=== PATIENT | male | born 1945 | race Caucasian/White ===

== ENCOUNTER 2016-06-21 15:45 | Emergency (ER) | payer MEDICARE ==
[2016-06-21] MEDS ORDERED: SODIUM CHLORIDE 0.9% 1,000 ML IV ONE (16:35)
[2016-06-21] MEDS ORDERED: POTASSIUM BICARB 25 MEQ TABLET PO STA (17:26)
[2016-06-21] MEDS ORDERED: POTASSIUM BICARB 25 MEQ TABLET PO ONE (17:30)
== END 2016-06-21 19:15 | disposition home or self-care (01) ==
DX: E86.0 Dehydration (principal); Z86.73 Personal history of transient ischemic attack (TIA), and cerebral infarction without residual deficits
CPT/HCPCS: 36415; 71020; 80053; 81003; 83690; 84484; 85025; 93005; 93010; 96360; 96361; 99284; A9270

== ENCOUNTER 2017-11-27 13:21 | Outpatient (CLI) | payer MEDICARE | END 2017-11-27 13:22 | disposition short-term general hospital (02) | LOC: EMS 13:21 | PROVIDERS: ATTEND Surgery | DX: R53.1 Weakness (principal); R29.810 Facial weakness | CPT/HCPCS: A0170; A0425; A0427 ==

== ENCOUNTER 2019-02-13 15:47 | Emergency (ER) | payer MEDICARE ==
--- NOTE | 2019-02-13 16:41 | ED Physician Documentation ---
History of Present Illness - Stated complaint Stated Complaint: TROUBLE WALKING - Chief complaint Chief Complaint: Neuro - History obtained from History obtained from: Patient, Family - Additonal information Additional information: Is a 73-year-old man who presents with his complains that he went for a walk today that was several miles long and when he came back into the house he was "wonky". He was kind of wobbly he sat down in the chair his tested his arms and his left arm seemed weaker than the right because it would not lift up as high. She then gave him some food to eat and he drifted in and out in his chair for approximately 3 hours just dozing. When he went to get out of the chair he had difficulty getting up and that is when they decided that he should come in and be seen. The only symptom that he noted was that he was a little unsteady when he was done with his walk. Of note the pacer patient just had a pacemaker placed in the left subclavian area 5 days ago. This was an outpatient procedure. He is been active since that time walking on a treadmill at the gym. He denies any headache or dizziness. He did not have chest pain or shortness of breath. He did not break out in a sweat or feel nauseous. He has a history of mini strokes and is on Plavix but but denies heart history. They put the pacemaker in because he was having "fainting spells" due to his low heart rate. Have an appointment with the business quality assurance analyst at [facility] in 3 days. Review of Systems Constitutional: denies: Fever Ears: denies: Ear pain Nose: denies: Congestion Throat: denies: Sore throat Cardiac: reports: Pedal edema (Chronic and not worse than normal). denies: Chest pain / pressure, Palpitations Respiratory: denies: Dyspnea, Cough GI: denies: Nausea, Vomiting : denies: Dysuria Skin: denies: Rash Neurologic: reports: Generalized weakness. denies: Focal weakness, Numbness, Difficulty speaking, Near syncope, Syncope, Confused, Altered mental status, Headache, LOC PD PAST MEDICAL HISTORY - Past Medical History Cardiovascular: None Respiratory: None Endocrine/Autoimmune: None GI: None : Benign prostate hypertrophy Psych: None Musculoskeletal: None Derm: None - Present Medications Home Medications: Ambulatory Orders Medication Instructions Recorded Confirmed Enalapril Maleate [Vasotec] 20 mg PO BID 10/19/15 06/21/16 Finasteride 5 mg PO DAILY 10/19/15 06/21/16 Terazosin [Hytrin] 10 mg PO DAILY 10/19/15 06/21/16 amLODIPine [Norvasc] 2.5 mg PO DAILY 10/19/15 06/21/16 Potassium Chloride [Micro-K] 20 meq PO BIDWM 06/21/16 06/21/16 Atorvastatin [Lipitor] 02/13/19 Carbidopa/Levodopa [Carbidopa-Levo 02/13/19 ER 25-100 Tab] Clopidogrel [Plavix] 75 mg PO ONCE 02/13/19 02/13/19 Furosemide 40 mg PO 02/13/19 - Allergies Allergies/Adverse Reactions: Allergies Allergy/AdvReac Type Severity Reaction Status Date / Time No Known Drug Allergies Allergy Verified 10/19/15 17:10 - Social History Does the pt smoke?: No Smoking Status: Never smoker Does the pt drink ETOH?: No Does the pt have substance abuse?: No PD ED PE NORMAL - Vitals Vital signs reviewed: Yes - General General: Alert and oriented X 3, No acute distress, Well developed/nourished, Other (Patient was reading a book.) - HEENT HEENT: Atraumatic, PERRL, EOMI, Moist mucous membranes, Pharynx benign - Neck Neck: No adenopathy, Thyroid normal - Cardiac Cardiac: RRR, No murmur, Strong equal pulses - Respiratory Respiratory: No respiratory distress, Clear bilaterally - Abdomen Abdomen: Soft, Non tender, Non distended - Derm Derm: Other (There is a papular rash on the left upper chest wall due to the prep for the pacemaker. The incision looks like it is healing well.) - Extremities Extremities: No: No deformity - Neuro Neuro: Alert and oriented X 3, pen tester 2-12 intact, No motor deficit, No sensory deficit, Normal speech, Other (There is no pronator drift. The patient's left arm he holds slightly lower than the right however he did just have a subclavian pacemaker placed.) - Psych Psych: Normal mood, Normal affect Results - Vitals Vitals: Oxygen O2 Source Room air - EKG (time done) 1654 Rate: Rate (enter#) (50) Rhythm: Sinus bradycardia, Other (Paced rhythm) Ischemia: Normal ST segments Compare to prior EKG: Old EKG unavailable - Labs Labs: Laboratory Tests 02/13/19 02/13/19 02/13/19 14:55 14:55 14:55 WBC 6.8 RBC 3.87 L Hgb 12.1 L Hct 36.8 L MCV 95.1 H MCH 31.3 H MCHC 32.9 RDW 13.2 Plt Count 132 MPV 10.4 Neut # (Auto) 4.1 Lymph # (Auto) 1.7 [place] # (Auto) 0.5 Eos # (Auto) 0.4 Baso # (Auto) 0.1 Absolute Nucleated RBC 0.00 Nucleated RBC % 0.0 PT 13.0 H INR 1.2 Sodium 141 Potassium 3.8 Chloride 101 Carbon Dioxide 31 Anion Gap 9.0 BUN 23 H Creatinine 1.0 Estimated GFR (MDRD) 73 L Glucose 103 H POC Whole Bld Glucose Calcium 9.3 Phosphorus 4.2 Magnesium 2.1 Troponin I High Sens Urine Color Urine Clarity Urine pH Ur Specific [place] Urine Protein Urine Glucose (UA) Urine Ketones Urine Occult Blood Urine Nitrite Urine Bilirubin Urine Urobilinogen Ur Leukocyte Esterase Ur Microscopic Review Urine Culture Comments 02/13/19 02/13/19 02/13/19 14:55 15:58 16:13 WBC RBC Hgb Hct MCV MCH MCHC RDW Plt Count MPV Neut # (Auto) Lymph # (Auto) [place] # (Auto) Eos # (Auto) Baso # (Auto) Absolute Nucleated RBC Nucleated RBC % PT INR Sodium Potassium Chloride Carbon Dioxide Anion Gap BUN Creatinine Estimated GFR (MDRD) Glucose POC Whole Bld Glucose 100 Calcium Phosphorus Magnesium Troponin I High Sens 7.2 Urine Color YELLOW Urine Clarity CLEAR Urine pH 7.0 Ur Specific [place] 1.010 Urine Protein NEGATIVE Urine Glucose (UA) NEGATIVE Urine Ketones NEGATIVE Urine Occult Blood NEGATIVE Urine Nitrite NEGATIVE Urine Bilirubin NEGATIVE Urine Urobilinogen 0.2 (NORMAL) Ur Leukocyte Esterase NEGATIVE Ur Microscopic Review NOT INDICATED Urine Culture Comments NOT INDICATED - Rads (name of study) CXR Radiology: EMP read contemporaneously (Neg acute), See rad report PD MEDICAL DECISION MAKING - ED course Complexity details: reviewed results, re-evaluated patient, d/w patient, d/w family ED course: The EKG does not show acute changes. This is a paced rhythm. Labs are normal and urinalysis is negative. His chest x-ray is negative and the leads are in good position. He is asymptomatic here was up and ambulated and feels like he can stand up on his own. At this point I do not have a clear indication that there was any TIA symptoms. Certainly no evidence of a stroke at this time. We discussed admission for observation overnight or discharge home and he would prefer to be discharged home. I feel comfortable with that plan at this point he is to return if any worsening symptoms. He should rest tomorrow make sure that he eats dinner tonight. Keep the appointment for follow-up with a business quality assurance analyst on Thursday as scheduled. Departure - Departure Disposition: Home, Self Care Clinical Impression: Weakness Condition: Good Instructions: ED Weakness UKO Follow-Up: Nghia Dash MD [Primary Care Provider] - Comments: Home tonight and rest. Make sure that you eat dinner and drink plenty of fluids. Keep your appointment with the business quality assurance analyst on Thursday as scheduled. Return if you have recurrent symptoms or worsening symptoms. Discharge Date/Time: 02/13/19 19:26
[2019-02-13 17:09] LABS: BASOPHILS # (AUTO) 0.1 10^3/uL (0.0-0.1); BASOPHILS % (AUTO) 0.7 %; EOSINOPHILS # (AUTO) 0.4 10^3/uL (0.0-0.7); EOSINOPHILS % (AUTO) 5.3 %; HGB - HEMOGLOBIN 12.1 g/dL (14.0-18.0); LYMPHOCYTES # (AUTO) 1.7 10^3/uL (1.5-3.5); LYMPHOCYTES % (AUTO) 24.6 %; MEAN CORPUSCULAR HEMOGLOBIN 31.3 pg (27.0-31.0); MEAN CORPUSCULAR HGB CONC 32.9 g/dL (32.0-36.0); MEAN CORPUSCULAR VOLUME 95.1 fL (80.0-94.0); MEAN PLATELET VOLUME 10.4 fL (7.4-11.4); MONOCYTES # (AUTO) 0.5 10^3/uL (0.0-1.0); NEUTROPHILS # (AUTO) 4.1 10^3/uL (1.5-6.6); NEUTROPHILS % (AUTO) 60.8 %; PLT - PLATELET COUNT 132 10^3/uL (130-450); RED BLOOD COUNT 3.87 10^6/uL (4.70-6.10); RED CELL DISTRIBUTION WIDTH 13.2 % (12.0-15.0); WHITE BLOOD COUNT 6.8 x10^3/uL (4.8-10.8)
[2019-02-13 17:10] LABS: BILIRUBIN,URINE NEGATIVE (NEGATIVE); CLARITY,URINE CLEAR (CLEAR); GLUCOSE, URINE (UA) NEGATIVE (NEGATIVE); KETONES,URINE (UA) NEGATIVE (NEGATIVE); LEUKOCYTE ESTERASE, URINE NEGATIVE (NEGATIVE); NITRITE,URINE NEGATIVE (NEGATIVE); OCCULT BLOOD,URINE NEGATIVE (NEGATIVE); PROTEIN,URINE NEGATIVE (NEGATIVE); UROBILINOGEN,URINE 0.2 (NORMAL) E.U./dL (NORMAL)
[2019-02-13 17:15] LABS: INR 1.2 (0.8-1.2)
[2019-02-13 17:24] LABS: CALCIUM 9.3 mg/dL (8.5-10.3); MAGNESIUM 2.1 mg/dL (1.7-2.8); PHOSPHORUS 4.2 mg/dL (2.5-4.6)
--- NOTE | 2019-02-13 17:32 | XRAY Report ---
Reason: chest pain Procedure Date: 02/13/2019 Accession Number: [id number] / [id number] Procedure: XR - Chest 1 View X-Ray CPT Code: 57911 FULL RESULT: EXAM: CHEST RADIOGRAPHY EXAM DATE: 02/13/2019 05:00 PM. CLINICAL HISTORY: Chest Pain. COMPARISON: CHEST AP (VG) 02/08/2019 4:21 PM. TECHNIQUE: 1 view. FINDINGS: Lungs/Pleura: No focal opacities evident. No pleural effusion. No pneumothorax. Mediastinum: Within exam limitations, the cardiomediastinal contour is normal. Other: Left sided cardiac implant is in place with leads projecting over right atrium and right ventricular apex. IMPRESSION: No acute cardiopulmonary abnormality demonstrated. RADIA
[2019-02-13 17:36] VITALS: BP 149/81
== END 2019-02-13 19:26 | disposition home or self-care (01) ==
LOC: ED 15:47
DX: R53.1 Weakness (principal); Z79.01 Long term (current) use of anticoagulants
CPT/HCPCS: 36415; 71045; 80048; 81001; 81003; 83735; 84100; 84484; 85025; 85610; 87086; 93005; 99284

== ENCOUNTER 2019-11-22 14:43 | Observation (INO) | payer MEDICARE ==
[2019-11-22 15:23] LABS: BASOPHILS # (AUTO) 0.1 10^3/uL (0.0-0.1); BASOPHILS % (AUTO) 0.8 %; EOSINOPHILS # (AUTO) 0.2 10^3/uL (0.0-0.7); EOSINOPHILS % (AUTO) 2.8 %; HGB - HEMOGLOBIN 12.9 g/dL (14.0-18.0); LYMPHOCYTES # (AUTO) 1.2 10^3/uL (1.5-3.5); LYMPHOCYTES % (AUTO) 20.7 %; MEAN CORPUSCULAR HEMOGLOBIN 31.6 pg (27.0-31.0); MEAN CORPUSCULAR VOLUME 95.8 fL (80.0-94.0); MEAN PLATELET VOLUME 9.8 fL (7.4-11.4); MONOCYTES # (AUTO) 0.3 10^3/uL (0.0-1.0); MONOCYTES % (AUTO) 5.7 %; NEUTROPHILS # (AUTO) 4.2 10^3/uL (1.5-6.6); NEUTROPHILS % (AUTO) 69.8 %; PLT - PLATELET COUNT 144 10^3/uL (130-450); RED BLOOD COUNT 4.08 10^6/uL (4.70-6.10); RED CELL DISTRIBUTION WIDTH 13.1 % (12.0-15.0)
--- NOTE | 2019-11-22 15:26 | XRAY Report ---
PROCEDURE: Chest 1 View X-Ray INDICATIONS: Chest pain TECHNIQUE: One view of the chest was acquired. COMPARISON: 02/13/2019 FINDINGS: Surgical changes and devices: Left chest wall pacemaker leads are seen in the region of right atrium and right ventricle.. Lungs and pleura: No pleural effusions or pneumothorax. Lungs are clear. Mediastinum: Mediastinal contours appear normal. Heart size is enlarged. Bones and chest wall: No suspicious bony lesions. Overlying soft tissues appear unremarkable. IMPRESSION: No acute cardiopulmonary pathology. Reviewed by: Braeden Quevedo MD on 11/22/2019 3:24 PM PDT Approved by: Braedne Quevedo MD on 11/22/2019 3:24 PM PDT Station ID: [id number]
[2019-11-22 15:36] LABS: ALBUMIN 4.6 g/dL (3.2-5.5); ALBUMIN/GLOBULIN RATIO 2.1 (1.0-2.2); BILIRUBIN,TOTAL 1.1 mg/dL (0.2-1.0); CALCIUM 9.3 mg/dL (8.5-10.3); TOTAL PROTEIN 6.8 g/dL (6.7-8.2)
--- NOTE | 2019-11-22 15:43 | ED Physician Documentation ---
History of Present Illness - Stated complaint Stated Complaint: FELLING FAINT - Chief complaint Chief Complaint: Cardiac - History obtained from History obtained from: Patient, Family - History of Present Illness Timing: How many hours ago (2) - Additonal information Additional information: 74-year-old male presents to the emergency department with a chief complaint of feeling faint at the end of his walk. Patient reports that he usually walks at least 30 minutes a day either outside or on his treadmill. Today at the end of his walk he began to feel faint. He did not syncopized however he did call his who picked him up. His reports that when she picked him up he had some mild left-sided facial droop and he walked wobbly. This event occurred approximately 2 hours ago at 1:45 PM. Patient has a history of previous TIAs. 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 Patient is a non-smoker. No history of diabetes. He does have a history of hypertension well-controlled on current medications Meds confirmed: enalapril, finasteride, terazosin, amlodipine, KCL, statin, plavix, lasix, carbidopa-levo Review of Systems Constitutional: denies: Fever, Chills Eyes: denies: Loss of vision, Decreased vision Ears: denies: Loss of hearing, Ear pain Cardiac: denies: Chest pain / pressure, Palpitations Respiratory: denies: Dyspnea, Cough GI: denies: Abdominal Pain, Nausea, Vomiting : denies: Dysuria Skin: denies: Rash, Lesions Musculoskeletal: denies: Neck pain, Back pain Neurologic: reports: Generalized weakness, Focal weakness (left sided facial droop). denies: Syncope, Seizure, Confused, Headache, LOC PD PAST MEDICAL HISTORY - Past Medical History Past Medical History: Yes Cardiovascular: None Respiratory: None Endocrine/Autoimmune: None GI: None : Benign prostate hypertrophy Psych: None Musculoskeletal: None Derm: None - Present Medications Home Medications: Ambulatory Orders Medication Instructions Recorded Confirmed Enalapril Maleate [Vasotec] 20 mg PO BID 10/19/15 06/21/16 Finasteride 5 mg PO DAILY 10/19/15 06/21/16 Terazosin [Hytrin] 10 mg PO DAILY 10/19/15 06/21/16 amLODIPine [Norvasc] 2.5 mg PO DAILY 10/19/15 06/21/16 Potassium Chloride [Micro-K] 20 meq PO BIDWM 06/21/16 06/21/16 Atorvastatin [Lipitor] 02/13/19 Carbidopa/Levodopa [Carbidopa-Levo 02/13/19 ER 25-100 Tab] Clopidogrel [Plavix] 75 mg PO ONCE 02/13/19 02/13/19 Furosemide 40 mg PO 02/13/19 - Allergies Allergies/Adverse Reactions: Allergies Allergy/AdvReac Type Severity Reaction Status Date / Time No Known Drug Allergies Allergy Verified 11/22/19 14:45 - Social History Does the pt smoke?: No Smoking Status: Never smoker Does the pt drink ETOH?: No Does the pt have substance abuse?: No PD ED PE EXPANDED - General General: Alert, No acute distress, Well developed/nourished - HEENT HEENT: PERRL, EOMI (Mild left-sided facial droop as evidenced by decreased left nasolabial fold and slight droop of left eye). No: Atraumatic - Neck Neck: Supple w/out meningeal sx, No tenderness. No: Bruit present, Thyroid enlarged / mass - Cardiac Cardiac: Regular Rate, Radial strong equal, Femoral strong equal, Cap refill < 2 sec - Respiratory Respiratory: Clear to ausultation ricci - Abdomen Abdomen: Normal Bowel sounds. No: Tender to palpation - Back Back: Normal exam, Normal ROM - Neuro Neuro: Alert and Oriented X 3, Confused, Left face (mild loss of nasolabial fold on left and droop of left upper eye lid), CN deficit (Mild left-sided facial droop with loss of nasolabial fold and droop of left upper eyelid.), PERRL, Normal speech. No: CNII-XII intact, Nystagmus Results - Vitals Vitals: Vital Signs - 24 hr 11/22/19 11/22/19 14:46 15:30 Temperature 36.6 C Heart Rate 79 59 L Respiratory 16 14 Rate Blood Pressure 125/76 124/79 O2 Saturation 97 97 Oxygen O2 Source Room air - EKG (time done) 1451 Rate: Rate (enter#) (67) Rhythm: NSR [place]: LAD Intervals: Prolonged HI, 1st degree AVB QRS: Normal Ischemia: Normal ST segments Compare to prior EKG: Changed from prior EKG (prior without 1st AV) - Labs Labs: Laboratory Tests 11/22/19 11/22/19 11/22/19 15:10 15:10 15:10 WBC 6.0 RBC 4.08 L Hgb 12.9 L Hct 39.1 L MCV 95.8 H MCH 31.6 H MCHC 33.0 RDW 13.1 Plt Count 144 MPV 9.8 Neut # (Auto) 4.2 Lymph # (Auto) 1.2 L [place] # (Auto) 0.3 Eos # (Auto) 0.2 Baso # (Auto) 0.1 Absolute Nucleated RBC 0.00 Nucleated RBC % 0.0 Sodium 140 Potassium 3.8 Chloride 102 Carbon Dioxide 28 Anion Gap 10.0 BUN 26 H Creatinine 1.0 Estimated GFR (MDRD) 73 L Glucose 111 H Calcium 9.3 Total Bilirubin 1.1 H AST 25 ALT 14 Alkaline Phosphatase 64 Troponin I High Sens 3.8 Total Protein 6.8 Albumin 4.6 Globulin 2.2 Albumin/Globulin Ratio 2.1 Lipase 32 Urine Color Urine Clarity Urine pH Ur Specific [place] Urine Protein Urine Glucose (UA) Urine Ketones Urine Occult Blood Urine Nitrite Urine Bilirubin Urine Urobilinogen Ur Leukocyte Esterase Ur Microscopic Review Urine Culture Comments 11/22/19 17:20 WBC RBC Hgb Hct MCV MCH MCHC RDW Plt Count MPV Neut # (Auto) Lymph # (Auto) [place] # (Auto) Eos # (Auto) Baso # (Auto) Absolute Nucleated RBC Nucleated RBC % Sodium Potassium Chloride Carbon Dioxide Anion Gap BUN Creatinine Estimated GFR (MDRD) Glucose Calcium Total Bilirubin AST ALT Alkaline Phosphatase Troponin I High Sens Total Protein Albumin Globulin Albumin/Globulin Ratio Lipase Urine Color YELLOW Urine Clarity CLEAR Urine pH 7.0 Ur Specific [place] 1.010 Urine Protein NEGATIVE Urine Glucose (UA) NEGATIVE Urine Ketones NEGATIVE Urine Occult Blood TRACE-INTA Urine Nitrite NEGATIVE Urine Bilirubin NEGATIVE Urine Urobilinogen 0.2 (NORMAL) Ur Leukocyte Esterase NEGATIVE Ur Microscopic Review NOT INDICATED Urine Culture Comments NOT INDICATED - Rads (name of study) cxr Radiology: Final report received (negative for acute cardiopulmonary pathology) CT angio neck Radiology: Final report received (Right ICA fully patent. Less than 50% stenosis left ICA. High-grade short segment atherosclerotic stenosis involving the V4 segment of the left vertebral artery. Moderate atherosclerotic stenosis in the origin of the left vertebral artery. Mild atherosclerotic stenosis in the origin of the right) CT angio head Radiology: Final report received (Chronic small lacunar infarcts involving the right corina, bilateral basal ganglia, left caudate body and right centrum semi- [place].Moderate diffuse cerebral volume loss. Moderate periventricular and subcortical white matter chronic microvascular ischemic change.) PD MEDICAL DECISION MAKING - ED course Complexity details: reviewed results, re-evaluated patient, d/w patient, d/w family ED course: 74-year-old male presents to the emergency department with chief complaint of feeling faint after a walk this afternoon. On presentation he is noted to have a mild left-sided facial droop. Patient does have a history of previous TIAs. - ECG is sinus. Negative troponin. no e/o atrial fib - CT angios of the head and neck was completed please see the fully dictated report. Most significant findings is that of high-grade short segment atherosclerotic changes in the V4 segment of the left vertebral artery. It is unclear to me at this time what previous TIA or stroke work-ups patient has had in the past. It is unclear to me at this time what previous TIA or stroke work- ups patient has had in the pastIt is unclear to me at this time what previous TIA or stroke work-ups patient has had in the past 1809: I have spoken with Dr. Bella the on-call neurologist with the [facility] system here in the [place]. He recommends that the patient be admitt ed for observation and likely transfer to a [place] facility 1930: At this time patient's facial droop has nearly fully resolved. We are unable to find a bed for patient at [facility] through [place]. Therefore we will admit this gentleman to our hospitalist service and show to has agreed to admit to [facility] for resolving TIA Departure - Departure Disposition: ED Place in Observation Clinical Impression: TIA (transient ischemic attack)
[2019-11-22] MEDS ORDERED: IOVERSOL 320 100 ML VIAL IVP ONE ×2 (15:48→16:21)
[2019-11-22] MEDS ORDERED: SODIUM CHLORIDE 0.9% 1,000 ML IV STA (15:56)
--- NOTE | 2019-11-22 17:01 | CT Report ---
PROCEDURE: ANGIO HEAD W/WO INDICATIONS: mild left sided facial droop CONTRAST: IV CONTRAST: Optiray 320 ml: 80 PO CONTRAST: *NO PO CONTRAST TECHNIQUE: Precontrast 4.5 mm thick angled axial sections acquired from the foramen magnum to the vertex. Afte r the administration of intravenous contrast, 1 mm thick sections acquired through the [place] of [place] is. Postcontrast 4.5 mm thick sections then re-acquired from the foramen magnum to the vertex. 3-di mensional hehtzju-ocvirmfmb-pidojgtyvb (MIP) and/or volume rendering reformats were acquired of the c entral intracranial vasculature. For radiation dose reduction, the following was used: automated ex posure control, adjustment of mA and/or kV according to patient size. COMPARISON: CT head 10/19/2015 and MRI brain 10/20/2015. FINDINGS: Image quality: Excellent. Anterior circulation: Intracranial internal carotid arteries are normal in flow. Atherosclerotic brayden cifications noted in the cavernous and clinoid segments of the internal carotid arteries bilaterally which cause mild stenosis. The flow within the paired anterior cerebral arteries is normal and symmet fawn. The flow within the middle cerebral arteries is normal and symmetric. The anterior communicati ng artery is seen. No aneurysms are seen. Posterior circulation: Atherosclerotic calcification noted in the proximal V4 segment of the left delfino tebral artery causes mild stenosis. After static calcification noted in the distal V4 segment of the left vertebral artery which causes short segment, high-grade stenosis. Atherosclerotic calcification noted in the V4 segment of the right vertebral artery which does not cause measurable stenosis. Flow within the posterior cerebral arteries is normal and symmetric. No aneurysms are seen. CSF spaces: Ventricles are normal in size and shape. Basal cisterns are patent. No extra-axial flu id collections. Brain: No midline shift. No intracranial bleeds or masses. Dias-white matter interface appears int act. Chronic, small lacunar infarcts involving the right corina, basal ganglia bilaterally left caudate body and the right centrum semiovale. There is moderate, diffuse cerebral volume loss. There are mod erate periventricular and subcortical white matter chronic microvascular ischemic changes. Skull and face: Calvarium and facial bones appear intact, without suspicious lesions. Sinuses: Mucous retention cyst versus polyp noted in the maxillary sinuses bilaterally. The mastoids are clear. IMPRESSION: 1. No acute intracranial disease process. 2. Chronic, small lacunar infarcts involving the right corina, bilateral basal ganglia, left caudate thang dy and right centrum semiovale. 3. No intracranial hemorrhage. 4. Moderate, diffuse cerebral volume loss. 5. Moderate periventricular and subcortical white matter chronic microvascular ischemic change. 6. High-grade, short segment atherosclerotic stenosis involving the V4 segment of the left vertebral artery. 7. No large vessel occlusion, vascular dissection or aneurysm. Reviewed by: Mya Gonsalves MD, PhD on 11/22/2019 5:00 PM PDT Approved by: Mya Gonsalves MD, PhD on 11/22/2019 5:00 PM PDT Station ID: [id number]
--- NOTE | 2019-11-22 17:09 | CT Report ---
PROCEDURE: ANGIO NECK W INDICATIONS: left sided facial droop CONTRAST: IV CONTRAST: Optiray 320 ml: 80 PO CONTRAST: *NO PO CONTRAST TECHNIQUE: After the administration of intravenous contrast, 1.5 mm axial sections acquired from the aortic arch to the [place] of [place]ahl. Coronal 3-D maximum intensity projection (MIP) and/or volume rendering ref ormats were then performed. For radiation dose reduction, the following was used: automated exposur e control, adjustment of mA and/or kV according to patient size. COMPARISON: None. FINDINGS: Image quality: Excellent. Carotid system: The great vessels demonstrate a conventional anatomy as they arise from the aortic a [facility]. The origins of the common carotid arteries appear patent. The common carotid arteries demonstr ate normal calibers and courses. Origin of the right internal carotid artery is fully patent. Calcifi ed metastatic plaque noted in the origin of the left internal carotid artery causes less than 50% ko nosis of the vessel. Posterior circulation: Soft atherosclerotic plaque noted in the origin of the right vertebral artery which causes mild stenosis. Soft atherosclerotic plaque noted in the origin of the left vertebral art peewee which causes moderate stenosis. Patient is right vertebral artery dominant. Metastatic calcificat ion noted in the distal V4 segment of the left vertebral artery which causes short segment, high-grad e stenosis. They join to form a normal appearing basilar artery. Soft tissues: Visualized neck soft tissues demonstrate no suspicious abnormalities. The thyroid gla nd is normal in size. Left chest wall cardiac pacer noted. Bones: No suspicious bony lesions. Spine degenerative disc disease and facet arthropathy are noted. Visualized cervical spine appears normally aligned. IMPRESSION: 1. Right internal carotid artery is fully patent. 2. Less than 50% stenosis of the origin of the left internal carotid artery. 3. High-grade, short segment atherosclerotic stenosis involving the V4 segment of the left vertebral artery. 4. Moderate atherosclerotic stenosis of the origin of the left vertebral artery. \ 5. Mild atherosclerotic stenosis of the origin of the right vertebral artery. The estimate of stenosis included in the report of the imaging study was calculated using the NASCET method Reviewed by: Mya Gonsalves MD, PhD on 11/22/2019 5:08 PM PDT Approved by: Mya Gonsalves MD, PhD on 11/22/2019 5:08 PM PDT Station ID: [id number]
[2019-11-22 17:31] LABS: BILIRUBIN,URINE NEGATIVE (NEGATIVE); GLUCOSE, URINE (UA) NEGATIVE (NEGATIVE); KETONES,URINE (UA) NEGATIVE (NEGATIVE); LEUKOCYTE ESTERASE, URINE NEGATIVE (NEGATIVE); NITRITE,URINE NEGATIVE (NEGATIVE); OCCULT BLOOD,URINE TRACE-INTA (NEGATIVE); PROTEIN,URINE NEGATIVE (NEGATIVE); UROBILINOGEN,URINE 0.2 (NORMAL) E.U./dL (NORMAL)
[2019-11-22 17:33] LABS: CLARITY,URINE CLEAR (CLEAR)
[2019-11-22] MEDS ORDERED: SODIUM CHLORIDE FLUSH 0.9% 10 ML SYRINGE IVP PRN (19:26)
[2019-11-22] MEDS ORDERED: ASPIRIN CHEW 81 MG TABLET PO STA (19:42)
--- NOTE | 2019-11-22 19:46 | HISTORY & PHYSICAL EXAMINATION ---
Chief Complaint - Chief Complaint Chief Complaint: left facial droop, dizziness History of Present Illness - Admitted From Admitted From:: [facility] ED - History Obtained From Records Reviewed: yes History obtained from: patient, ED staff - History of Present Illness HPI Comment/Other: Patient is a 74-year-old male with medical history significant for TIA, hypertension, hyperlipidemia, sleep apnea on CPAP, Parkinson's disease. Patient also has a pacemaker. He presented to the ED with complaint of lightheadedness, and left facial droop. He usually does about 30 minutes of aerobic exercise daily. He was out for a walk and was almost back home when he suddenly felt faint. He denied any syncopal episode. He called his who brought him to the ED. He denied any speech difficulties, blurry or double vision. He denied headaches however it was reported that he had some left facial droop at the time. The patient states he normally tilts towards the left. By the time he arrived to the ED his symptoms had almost completely resolved. At the time of my evaluation he had no neurologic symptoms. He denies any chest pain, dyspnea, abdominal pain, nausea, vomiting, fever or chills. Work-up in the ED included a CT and CT Jeni of the head and neck which was unremarkable for any acute process but showed previous small lacunar infarcts Involving the right corina, bilateral basal ganglia, left caudate body and right centrum semiovale. As a result of his presentation he is being admitted for further work-up. He is a [facility] patient. The neurologist on-call for [facility] was contacted who advised admission for observation. History - Past Medical History Cardiovascular: reports: Hypertension, High cholesterol Respiratory: reports: Sleep apnea, CPAP use Neuro: reports: TIA, Parkinson's : reports: Benign prostate hypertrophy Psych: reports: None Musculoskeletal: reports: None Derm: reports: None MRSA Hx?: No - Past Surgical History Cardiovascular: reports: Pacemaker Neuro: reports: Other (cyst removal from spine) HEENT: reports: Cataracts (bilaterally) - Family & Social History Family History: Mother: , Alzheimer's Disease, Father: , CAD, [place] (Father at age 43 from 2nd [place]), Brother: CAD, [place] Family History Comment/Other: Brother 1: [place], schizophrenia and bipolar. Brother 2: at least 2 stents Social History Notes: According to previous records the patient had been to his for about 55 years now. They have 1 daughter who lives in [place]. 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 They moved to [facility] in 2004 during detention. He does not smoke tobacco products or use illicit drugs. He drinks 1 to 2 glasses of wine per week or less. - POLST Patient has POLST: No POLST Status: Full Code Meds/Allgy - Home Medications Home Medications: Ambulatory Orders Medication Instructions Recorded Confirmed Enalapril Maleate [Vasotec] 20 mg PO BID 10/19/15 06/21/16 Finasteride 5 mg PO DAILY 10/19/15 06/21/16 Terazosin [Hytrin] 10 mg PO DAILY 10/19/15 06/21/16 amLODIPine [Norvasc] 2.5 mg PO DAILY 10/19/15 06/21/16 Potassium Chloride [Micro-K] 20 meq PO BIDWM 06/21/16 06/21/16 Atorvastatin [Lipitor] 02/13/19 Carbidopa/Levodopa [Carbidopa-Levo 02/13/19 ER 25-100 Tab] Clopidogrel [Plavix] 75 mg PO ONCE 02/13/19 02/13/19 Furosemide 40 mg PO 02/13/19 - Allergies Allergies/Adverse Reactions: Allergies Allergy/AdvReac Type Severity Reaction Status Date / Time No Known Drug Allergies Allergy Verified 11/22/19 14:45 Review of Systems - Constitutional Constitutional: reports: Weakness. denies: Fatigue, Fever - Eyes Eyes: denies: Pain, Vision loss, Dipolpia - Ears, Nose & Throat Ears, Nose & Throat: denies: Ear pain, Vertigo - Cardiovascular Cariovascular: reports: Lightheadedness. denies: Irregular heart rate, Pal pitations, Syncope, Exertional dyspnea, Decr. exercise tolerance - Respiratory Respiratory: denies: Cough, Wheezing, SOB at rest, SOB with exertion - Gastrointestinal Gastrointestinal: denies: Abdominal pain, Constipation, Diarrhea, Nausea, Vomiting - Genitourinary Genitourinary: denies: Dysuria, Frequency, Urgency, Hematuria - Musculoskeletal Musculoskeletal: denies: Muscle pain, Back pain, Muscle aches - Integumentary Integumentary: denies: Rash, Pruritis, Lesions - Neurological Neurological: reports: Dizziness, Other (left f) - Psychiatric Psychiatric: denies: Depression, Anxiety - Endocrine Endocrine: denies: Polyuria, Polydypsia - Hematologic/Lymphatic Hematologic/Lymphatic: denies: Anemia, Bruising, Petechiae Prior Level of Functionality: Patient is independent of activities of daily living. He walks without using any walking aid. He usually does at least 30 minutes of aerobic exercise daily. Exam - Vital Signs Vital Signs: Vital Signs x48h Temp Pulse Resp BP Pulse Ox 11/22/19 15:30 59 L 14 124/79 97 11/22/19 14:46 36.6 C 79 16 125/76 97 - Physical Exam General Appearance: positive: No acute distress, Alert Eyes Bilateral: positive: EOMI ENT: positive: No signs of dehydration Neck: positive: No JVD, Trachea midline Respiratory: positive: No respiratory distress, Breath sounds nml. negative: Wheezes, Rales, Rhonchi Cardiovascular: positive: Regular rate & rhythm, No murmur Abdomen: positive: Non-tender, No organomegaly, Nml bowel sounds, No distention. negative: Guarding, Rebound Back: positive: Nml inspection Skin: positive: Color nml, No rash, Warm, Dry Extremities: positive: Non-tender, Full ROM, Nml appearance, No pedal edema Neurologic/Psychiatric: positive: Oriented x3, Sensation nml Conclusion/Plan - Problem List (1) TIA (transient ischemic attack) Conclusion/Plan: Symptoms appear to have significantly improved/resolved. Patient initially had left facial droop. CT and CT angios of the head and neck was unremarkable for an acute process. Patient has a pacemaker in place which would limit ability to obtain an MRI. We will check lipid panel and hemoglobin A1c in the morning as well. 2D echo pending. Neurochecks every shift. Atorvastatin 20 mg every afternoon ordered. Patient was given a full dose of aspirin in the ED. We will continue baby aspirin daily. (2) Hypertension Conclusion/Plan: Patient's previous records shows he has been on amlodipine and Vasotec in the past. We will resume once verified. (3) DEEP on CPAP Conclusion/Plan: Will ask family to bring patient's home CPAP. (4) Parkinson disease Conclusion/Plan: Patient is on carbidopa/levodopa Will continue at home dose once verified. (5) BPH (benign prostatic hyperplasia) Conclusion/Plan: Will resume finasteride and terazosin - Lab Results Fish Bones: 11/22/19 15:10 11/22/19 15:10 Core Measures - Anticipated LOS I expect patient to be DC'd or transferred within 96 hours.: Yes - DVT/VTE - Prophylaxis VTE/DVT Device ordered at admit?: Yes - Stroke - Rehab Assessment Rehab services assessment to be ordered?: Yes - AMI - Statin at Admit Aspirin Prescribed on Admit: Yes
[2019-11-22] MEDS ORDERED: ATORVASTATIN 40 MG TABLET PO SCH ×2 (21:00→21:43)
[2019-11-22] MEDS: ENALAPRIL 5 MG TABLET PO SCH (21:48)
[2019-11-22] MEDS: amLODIPine 5 MG TABLET PO SCH (21:50)
[2019-11-22] MEDS ORDERED: CARBIDOPA/LEVODOPA ER 25 MG/100 MG TABLET PO ONE (22:00)
[2019-11-22] MEDS: SODIUM CHLORIDE FLUSH 0.9% 10 ML SYRINGE IVP SCH (23:55)
[2019-11-23 05:12] LABS: BASOPHILS # (AUTO) 0.1 10^3/uL (0.0-0.1); EOSINOPHILS # (AUTO) 0.3 10^3/uL (0.0-0.7); EOSINOPHILS % (AUTO) 4.5 %; HGB - HEMOGLOBIN 13.1 g/dL (14.0-18.0); LYMPHOCYTES # (AUTO) 2.3 10^3/uL (1.5-3.5); LYMPHOCYTES % (AUTO) 32.7 %; MEAN CORPUSCULAR HEMOGLOBIN 31.6 pg (27.0-31.0); MEAN CORPUSCULAR HGB CONC 33.2 g/dL (32.0-36.0); MEAN CORPUSCULAR VOLUME 95.2 fL (80.0-94.0); MEAN PLATELET VOLUME 10.2 fL (7.4-11.4); MONOCYTES # (AUTO) 0.6 10^3/uL (0.0-1.0); NEUTROPHILS # (AUTO) 3.7 10^3/uL (1.5-6.6); NEUTROPHILS % (AUTO) 53.2 %; PLT - PLATELET COUNT 143 10^3/uL (130-450); RED BLOOD COUNT 4.14 10^6/uL (4.70-6.10); WHITE BLOOD COUNT 6.9 x10^3/uL (4.8-10.8)
[2019-11-23 05:36] LABS: BUN - BLOOD UREA NITROGEN 18 mg/dL (6-20); CALCIUM 9.1 mg/dL (8.5-10.3); CARBON DIOXIDE - CO2 29 mmol/L (21-32); CHLORIDE 102 mmol/L (101-111); CHOL/HDL RATIO 1.9 (<5.0); CHOLESTEROL 94 mg/dL; CREATININE 0.9 mg/dL (0.6-1.2); GLUCOSE 82 mg/dL (70-100); HDL CHOLESTEROL 49 mg/dL; LDL CHOLESTEROL,CALCULATED 36 mg/dL; LDL/HDL RATIO 0.7 (<3.6); SODIUM 139 mmol/L (135-145); VLDL CHOLESTEROL 9 mg/dL
[2019-11-23 05:50] LABS: HB2 TOTAL 13.9 g/dL; HEMOGLOBIN A1C 0.47 g/dL; HEMOGLOBIN A1C % 5.2 % (4.6-6.2)
[2019-11-23] MEDS ORDERED: PANTOPRAZOLE 40 MG TABLET PO SCH (07:00)
[2019-11-23] MEDS ORDERED: POTASSIUM CHLORIDE 20 MEQ/15 ML UDC PO ONE (08:00)
[2019-11-23] MEDS: ENALAPRIL 5 MG TABLET PO SCH (08:33)
[2019-11-23] MEDS: amLODIPine 5 MG TABLET PO SCH (08:33)
[2019-11-23] MEDS: SODIUM CHLORIDE FLUSH 0.9% 10 ML SYRINGE IVP SCH (08:40)
[2019-11-23] MEDS ORDERED: ASPIRIN EC 81 MG TABLET PO SCH (09:00)
[2019-11-23] MEDS ORDERED: CLOPIDOGREL 75 MG TABLET PO SCH (09:00)
[2019-11-23] MEDS ORDERED: FINASTERIDE 5 MG TABLET PO SCH (09:00)
--- NOTE | 2019-11-23 12:38 | PHARMACY PROGRESS NOTE ---
- Best Possible Medication History Admit Date and Time: 11/22/191925 Processed by: Pharmacy Medication History completed: Yes Patient Interview: Completed Secondary Source(s): Pharmacy records, Insurance records (Patient interviewed by clinical pharmacy technician) As the person ultimately responsible for medication therapy, providers are able to order a medication from an existing home medication list in [facility] via the "Reconcile Routine" prior to Confirmation of that medication by desktop support specialist. Such practice is discouraged except when the physician, in their clinical judgment, deems that a medical need exists for a medication without regard to previous use.
[2019-11-23 15:27] VITALS: BP 133/75
--- NOTE | 2019-11-23 15:28 | Discharge Plan ---
Discharge Plan Problem Reviewed?: Yes Disposition: Home, Self Care Condition: Stable Diet: Regular Activity Restrictions: Activity as Tolerated Shower Restrictions: No (fall precaution) Instruction Topics: TIA Health Concerns: TIA Plan of Treatment: You walked with physical therapy/occupation therapy about 300 feet without focal neurological deficits. Your facial droop and lightheaded were resolved. Your images studies shows unremarkable. you have Pacemaker and we do not know which kind of Pacemaker you have, MRI of brain can not be done for you. Advise you followup your PCP, and neurologist as out-patient to have MRI of your brain if clinically indicated. You may continue your home medications as the scheduled. Care Goals: stabilization and improvement of your medical conditions Assessment: discussed the care plan with you, you understood and agreed. Additional Instructions or Follow Up instructions: You may followup your PCP in one to two weeks, followup with your neurologist as out-patient. Should your symptoms return or worsen, you may present ER or call 911 for help. Follow-Up Care: Outpatient Rehab - PT, Outpatient Rehab - OT No Smoking: If you smoke, Please STOP! Call for help. Follow-up with: BHAVIN VERDE MD [Primary Care Provider] -
--- NOTE | 2019-11-23 15:44 | DISCHARGE SUMMARY ---
Discharge Summary Admit Date: 11/22/19 Discharge Date: 11/23/19 Discharging Provider: Jay Christensen Primary Care Provider: Justice Arauz Condition at Discharge: Stable Discharge Disposition: 01 Home, Self Care Discharge Facility Name: Home - DIAGNOSES Discharge Diagnoses with Status of Each Condition: (1) TIA (transient ischemic attack) resolved. pt's facial droop and lightheaded were resolved and no other focal neurological deficits. CTA of head and the neck, and echo all are unremarkablept. pt have Pacemaker and unknown which kind of Pacemaker pt have, MRI of brain can not be done for pt. Advise pt followup his PCP, and neurologist as out-patient to have MRI of his brain if clinically indicated. Patient Walk in the hallway without any issues. Physical therapy and Occupational Therapy evaluated and treated the patient without focal neurological deficits. Patient is advised to resume his home medication as scheduled (2) Hypertension stable (3) DEEP on CPAP stable (4) Parkinson disease chronic and stable (5) BPH (benign prostatic hyperplasia) chronic - HPI History of Present Illness: refer from Dr. Mcconnell's HPI on 11/22/2019 Patient is a 74-year-old male with medical history significant for TIA, hypertension, hyperlipidemia, sleep apnea on CPAP, Parkinson's disease. Patient also has a pacemaker. He presented to the ED with complaint of lightheadedness, and left facial droop. He usually does about 30 minutes of aerobic exercise daily. He was out for a walk and was almost back home when he suddenly felt faint. He denied any syncopal episode. He called his who brought him to the ED. He denied any speech difficulties, blurry or double vision. He denied headaches however it was reported that he had some left facial droop at the time. The patient states he normally tilts towards the left. By the time he arrived to the ED his symptoms had almost completely resolved. At the time of my evaluation he had no neurologic symptoms. He denies any chest pain, dyspnea, abdominal pain, nausea, vomiting, fever or chills. Work-up in the ED included a CT and CT Jeni of the head and neck which was unremarkable for any acute process but showed previous small lacunar infarcts Involving the right corina, bilateral basal ganglia, left caudate body and right centrum semiovale. As a result of his presentation he is being admitted for further work-up. He is a [facility] patient. The neurologist on-call for [facility] was contacted who advised admission for observation. - HOSPITAL COURSE Hospital Course: Patient was admitted for TIA with left facial droop and lightheaded. Patient's focal neurological deficit was resolved when he was at the admission. Patient continue to have physical therapist and occupational therapist evaluation and treatment. Patient has no other focal neurological deficits. CTA of head and neck, and echo are all unremarkable. Patient has a pacemaker, patient does not know which kind of pacemaker he have. MRI of the brain cannot be done for the patient. Patient is advised follow-up with his PCP and neurologist to have MRI of the brain as outpatient if clinically indicated. Advised patient resume his home medication as scheduled. - ALLERGIES Allergies/Adverse Reactions: Allergies Allergy/AdvReac Type Severity Reaction Status Date / Time No Known Drug Allergies Allergy Verified 11/22/19 14:45 - MEDICATIONS Home Medications: Ambulatory Orders Medication Instructions Recorded Confirmed Finasteride 5 mg PO DAILY 10/19/15 11/23/19 Carbidopa/Levodopa [Carbidopa-Levo 1 tab PO TID 02/13/19 11/23/19 ER 25-100 Tab] Clopidogrel [Plavix] 75 mg PO DAILY 02/13/19 11/23/19 Furosemide 40 mg PO DAILY 02/13/19 11/23/19 Atorvastatin Calcium 40 mg PO DAILY 11/23/19 11/23/19 Benazepril HCl 20 mg PO DAILY 11/23/19 11/23/19 Escitalopram Oxalate 5 mg PO DAILY 11/23/19 11/23/19 Potassium Chloride 10 meq PO QPM 11/23/19 11/23/19 Terazosin HCl 10 mg PO DAILY 11/23/19 11/23/19 amLODIPine [Norvasc] 5 mg PO DAILY 11/23/19 11/23/19 - PHYSICAL EXAM AT DISCHARGE General Appearance: positive: No acute distress, Alert. negative: Lethargic Eyes Bilateral: positive: Normal inspection, PERRL, No lid inflammation ENT: positive: ENT inspection nml, Pharynx nml, No signs of dehydration. negative: Purulent nasal drainage Neck: positive: Nml inspection, Thyroid nml, No JVD, Trachea midline. negative: Thyromegaly, Stiff neck, Tracheal deviation Respiratory: positive: Chest non-tender, No respiratory distress, Breath sounds nml. negative: Wheezes, Rales, Rhonchi Cardiovascular: positive: Regular rate & rhythm, No murmur, No gallop. negative: Tachycardia, Bradycardia, Systolic murmur, Diastolic murmur Peripheral Pulses: positive: 2+ Abdomen: positive: Non-tender, No organomegaly, Nml bowel sounds, No distention. negative: Tenderness, Guarding, Rebound Back: positive: Nml inspection. negative: CVA tenderness (R), CVA tenderness (L) Skin: positive: Color nml, No rash, Warm, Dry. negative: Cyanosis, Diaphoresis, Pallor Extremities: positive: Non-tender, Full ROM, Nml appearance. negative: Calf tenderness, Juli's sign/cords Neurologic/Psychiatric: positive: Oriented x3, Sensation nml, Mood/affect nml. negative: Weakness, Sensory loss, Facial droop, Slurred/abnml speech, Depressed mood/affect - LABS Result Diagrams: 11/23/19 04:45 11/23/19 04:50 - DIAGNOSTIC IMAGING Diagnostic Imaging Results Comments: CTA of head and neck, ECHO are all unremarkable. - FOLLOW UP Follow Up: You walked with physical therapy/occupation therapy about 300 feet without focal neurological deficits. Your facial droop and lightheaded were resolved. Your images studies shows unremarkable. you have Pacemaker and we do not know which kind of Pacemaker you have, MRI of brain can not be done for you. Advise you followup your PCP, and neurologist as out-patient to have MRI of your brain if clinically indicated. You may continue your home medications as the scheduled. You may followup your PCP in one to two weeks, followup with your neurologist as out-patient. Should your symptoms return or worsen, you may present ER or call 911 for help. - TIME SPENT Time Spent in Discharge (Minutes): 30
== END 2019-11-23 16:35 | disposition home or self-care (01) ==
LOC: ED 14:43 → MS2 19:26
PROVIDERS: ADMIT Internal Medicine; ATTEND Nurse Practitioner Gerontology
DX: G45.9 Transient cerebral ischemic attack, unspecified (principal); I10 Essential (primary) hypertension; I44.0 Atrioventricular block, first degree; I67.2 Cerebral atherosclerosis; I65.02 Occlusion and stenosis of left vertebral artery; I65.22 Occlusion and stenosis of left carotid artery; I07.1 Rheumatic tricuspid insufficiency; G47.33 Obstructive sleep apnea (adult) (pediatric); G20 Parkinson's disease; N40.0 Benign prostatic hyperplasia without lower urinary tract symptoms; E78.00 Pure hypercholesterolemia, unspecified; Z79.02 Long term (current) use of antithrombotics/antiplatelets; Z79.899 Other long term (current) drug therapy; Z82.49 Family history of ischemic heart disease and other diseases of the circulatory system; Z95.0 Presence of cardiac pacemaker
CPT/HCPCS: 36415; 70496; 70498; 71045; 80048; 80053; 80061; 81003; 83036; 83690; 84484; 85025; 93005; 93306; 96360; 97161; 97166; 99285; A9270; Q9967; 81001; 83721; 87086

== ENCOUNTER 2020-03-27 08:30 | Outpatient (CLI) | payer MEDICARE | END 2020-03-27 08:31 | disposition home or self-care (01) | LOC: LAB 08:30 | PROVIDERS: ATTEND Student in an Organized Health Care Education/Training Program | DX: M79.662 Pain in left lower leg (principal) | CPT/HCPCS: 36415; 85379 ==

== ENCOUNTER 2020-03-28 19:00 | Emergency (ER) | payer MEDICARE ==
--- NOTE | 2020-03-28 19:47 | ED Physician Documentation ---
History of Present Illness - Stated complaint Stated Complaint: LT LEG PX-SENT BY PCP - Chief complaint Chief Complaint: Ext Problem - History obtained from History obtained from: Patient - Additonal information Additional information: Comes emergency department complaining of left calf pain for about 1 week. He states that it started fairly minor and has gradually progressed to increased pain over the past week. He states he has some chronic swelling in his lower extremities and thinks the left calf may be a little more swollen than the right and a little more swollen than usual but he is not sure. The patient denies any chest pain or shortness of breath. No fevers. He states that he is not sure if he has ever had a blood clot before. Patient denies any injuries. He denies knee or hip pain. No pain in his upper leg. No other complaints at this time. Review of Systems Ten Systems: 10 systems reviewed and negative Constitutional: reports: Reviewed and negative. denies: Fever, Chills Eyes: reports: Reviewed and negative Ears: reports: Reviewed and negative Nose: reports: Reviewed and negative Throat: reports: Reviewed and negative Cardiac: reports: Reviewed and negative. denies: Chest pain / pressure Respiratory: reports: Reviewed and negative. denies: Dyspnea GI: reports: Reviewed and negative : reports: Reviewed and negative Skin: reports: Reviewed and negative Musculoskeletal: reports: Extremity pain, Extremity swelling. denies: Joint pain Neurologic: reports: Reviewed and negative Psychiatric: reports: Reviewed and negative Endocrine: reports: Reviewed and negative Immunocompromised: reports: Reviewed and negative PD PAST MEDICAL HISTORY - Past Medical History Cardiovascular: Hypertension, High cholesterol Respiratory: Sleep apnea, CPAP use Neuro: TIA, Parkinson's Endocrine/Autoimmune: None GI: None : Benign prostate hypertrophy Psych: None Musculoskeletal: None Derm: None - Past Surgical History Cardiovascular: Pacemaker Neuro: Other HEENT: Cataracts - Present Medications Home Medications: Ambulatory Orders Medication Instructions Recorded Confirmed Finasteride 5 mg PO DAILY 10/19/15 11/23/19 Carbidopa/Levodopa [Carbidopa-Levo 1 tab PO TID 02/13/19 11/23/19 ER 25-100 Tab] Clopidogrel [Plavix] 75 mg PO DAILY 02/13/19 11/23/19 Furosemide 40 mg PO DAILY 02/13/19 11/23/19 Atorvastatin Calcium 40 mg PO DAILY 11/23/19 11/23/19 Benazepril HCl 20 mg PO DAILY 11/23/19 11/23/19 Escitalopram Oxalate 5 mg PO DAILY 11/23/19 11/23/19 Potassium Chloride 10 meq PO QPM 11/23/19 11/23/19 Terazosin HCl 10 mg PO DAILY 11/23/19 11/23/19 amLODIPine [Norvasc] 5 mg PO DAILY 11/23/19 11/23/19 - Allergies Allergies/Adverse Reactions: Allergies Allergy/AdvReac Type Severity Reaction Status Date / Time Unable to Assess Allergy Verified 03/28/20 19:12 - Social History Does the pt smoke?: No Smoking Status: Never smoker Does the pt drink ETOH?: No Does the pt have substance abuse?: No - POLST Patient has POLST: No POLST Status: Full Code PD ED PE NORMAL - Vitals Vital signs reviewed: Yes - General General: Alert and oriented X 3, No acute distress - HEENT HEENT: Atraumatic, PERRL, EOMI, Moist mucous membranes - Neck Neck: Supple, no meningeal sign - Cardiac Cardiac: RRR, No murmur - Respiratory Respiratory: No respiratory distress, Clear bilaterally - Abdomen Abdomen: Soft, Non tender, Non distended - Derm Derm: Normal color, Warm and dry, No rash - Extremities Extremities: No deformity, Other (1+ pitting edema bilaterally, L>R) - Neuro Neuro: Alert and oriented X 3 - Psych Psych: Normal mood, Normal affect Results - Vitals Vitals: Oxygen O2 Source Room air - Labs Labs: Laboratory Tests 03/28/20 03/28/20 03/28/20 21:25 21:25 21:25 WBC 5.9 RBC 4.28 L Hgb 13.6 L Hct 40.8 L MCV 95.3 H MCH 31.8 H MCHC 33.3 RDW 13.0 Plt Count 159 MPV 10.2 Neut # (Auto) 3.3 Lymph # (Auto) 1.8 [place] # (Auto) 0.5 Eos # (Auto) 0.2 Baso # (Auto) 0.1 Absolute Nucleated RBC 0.00 Nucleated RBC % 0.0 PT 13.0 H INR 1.2 Sodium 141 Potassium 3.9 Chloride 102 Carbon Dioxide 29 Anion Gap 10.0 BUN 28 H Creatinine 1.0 Estimated GFR (MDRD) 73 L Glucose 115 H Calcium 9.3 Total Bilirubin 1.0 AST 19 ALT 23 Alkaline Phosphatase 72 Total Protein 6.4 L Albumin 4.0 Globulin 2.4 Albumin/Globulin Ratio 1.7 Lipase 33 - Rads (name of study) US LLE Radiology: Final report received, See rad report (neg) PD MEDICAL DECISION MAKING - ED course Complexity details: reviewed old records, reviewed results, re-evaluated patient, considered differential, d/w patient ED course: The pt declined analgesia at this time. He was worked up with labs and an ultrasound of his left lower extremity, all of which were negative. I discussed the results with the patient. We discussed the usual indications for return and principles of management of symptoms at home. We have also discussed the need for follow-up. Departure - Departure Disposition: 01 Home, Self Care Clinical Impression: Pain in extremity Qualifiers: Extremity pain location: lower leg Laterality: left Qualified Code(s): M79.662 - Pain in left lower leg Condition: Stable Instructions: ED Muscle Pain Leg Cramps Comments: Your ultrasound looks goodno clots whatsoever. Your blood work also looks good. There is no evidence of infection of your leg, there is slightly more swelling on the left than the right. It is not exactly clear what has caused her calf to hurt, since you have not had an injury, but no emergent cause of your pain has been found. Please follow-up with your primary care physician if you are not feeling better in a few days. Discharge Date/Time: 03/28/20 23:48
[2020-03-28 21:31] LABS: BASOPHILS # (AUTO) 0.1 10^3/uL (0.0-0.1); EOSINOPHILS # (AUTO) 0.2 10^3/uL (0.0-0.7); EOSINOPHILS % (AUTO) 3.2 %; HGB - HEMOGLOBIN 13.6 g/dL (14.0-18.0); LYMPHOCYTES # (AUTO) 1.8 10^3/uL (1.5-3.5); LYMPHOCYTES % (AUTO) 30.8 %; MEAN CORPUSCULAR HEMOGLOBIN 31.8 pg (27.0-31.0); MEAN CORPUSCULAR HGB CONC 33.3 g/dL (32.0-36.0); MEAN CORPUSCULAR VOLUME 95.3 fL (80.0-94.0); MEAN PLATELET VOLUME 10.2 fL (7.4-11.4); MONOCYTES # (AUTO) 0.5 10^3/uL (0.0-1.0); MONOCYTES % (AUTO) 8.4 %; NEUTROPHILS # (AUTO) 3.3 10^3/uL (1.5-6.6); NEUTROPHILS % (AUTO) 56.3 %; PLT - PLATELET COUNT 159 10^3/uL (130-450); RED BLOOD COUNT 4.28 10^6/uL (4.70-6.10); WHITE BLOOD COUNT 5.9 x10^3/uL (4.8-10.8)
[2020-03-28 21:36] LABS: INR 1.2 (0.8-1.2)
[2020-03-28 21:44] LABS: ALBUMIN/GLOBULIN RATIO 1.7 (1.0-2.2); CALCIUM 9.3 mg/dL (8.5-10.3); TOTAL PROTEIN 6.4 g/dL (6.7-8.2)
[2020-03-28 23:48] VITALS: BP 142/77
--- NOTE | 2020-03-29 07:18 | Ultrasound Report ---
PROCEDURE: Duplex Ext Veins Left INDICATIONS: pain/swelling TECHNIQUE: Real-time imaging, as well as color and pulse Doppler interrogation, were performed of the lower extr emity deep veins from the inguinal ligament to the popliteal fossa. COMPARISON: None. FINDINGS: The deep veins are normally compressible, and free of intraluminal thrombus. Color and pu lse Doppler demonstrate normal phasic intraluminal flow. There is normal augmentation response to di stal compression maneuver. IMPRESSION: Negative for deep venous thrombosis of the left lower extremity. No significant discrepancy with initial interpretation by overnight radiologist. Reviewed by: Adolfo Harry MD on 03/29/2020 7:17 AM PST Approved by: Adolfo Harry MD on 03/29/2020 7:17 AM PST Station ID: [id number]
== END 2020-03-28 23:48 | disposition home or self-care (01) ==
LOC: ED 19:00
DX: M79.662 Pain in left lower leg (principal); R60.0 Localized edema; I10 Essential (primary) hypertension; G20 Parkinson's disease; Z86.73 Personal history of transient ischemic attack (TIA), and cerebral infarction without residual deficits; Z79.02 Long term (current) use of antithrombotics/antiplatelets
CPT/HCPCS: 36415; 80053; 83690; 85025; 85610; 99284

== ENCOUNTER 2020-04-16 13:11 | Outpatient (CLI) | payer MEDICARE | END 2020-04-16 13:12 | disposition short-term general hospital (02) | LOC: EMS 13:11 | PROVIDERS: ATTEND Surgery | DX: R53.1 Weakness (principal); R41.82 Altered mental status, unspecified | CPT/HCPCS: A0425; A0429 ==

== ENCOUNTER 2021-01-13 21:33 | Outpatient (CLI) | payer MEDICARE | END 2021-01-13 21:34 | disposition critical access hospital (66) | LOC: EMS 21:33 | DX: T17.228A Food in pharynx causing other injury, initial encounter (principal) | CPT/HCPCS: A0425; A0429 ==

== ENCOUNTER 2021-01-13 22:05 | Emergency (ER) | payer MEDICARE ==
[2021-01-13] MEDS ORDERED: GLUCAGON 1 MG/ML VIAL IVP STA (22:26)
--- NOTE | 2021-01-13 23:40 | ED Physician Documentation ---
History of Present Illness - Stated complaint Stated Complaint: FB stuck in throat - Chief complaint Chief Complaint: Heent - History obtained from History obtained from: Patient - Additonal information Additional information: 75-year-old man with history of early Parkinson's presents with foreign body sensation in throat after eating an apple an hour prior to arrival. He was coughing and drooling and unable to drink water without spitting up after this occurred. Review of Systems Throat: reports: Swallowed foreign body PD PAST MEDICAL HISTORY - Past Medical History Cardiovascular: Hypertension, High cholesterol Respiratory: Sleep apnea, CPAP use Neuro: TIA, Parkinson's Endocrine/Autoimmune: None GI: None : Benign prostate hypertrophy Psych: None Musculoskeletal: None Derm: None - Past Surgical History Cardiovascular: Pacemaker Neuro: Other HEENT: Cataracts - Present Medications Home Medications: Ambulatory Orders Medication Instructions Recorded Confirmed Finasteride 5 mg PO DAILY 10/19/15 11/23/19 Carbidopa/Levodopa [Carbidopa-Levo 1 tab PO TID 02/13/19 11/23/19 ER 25-100 Tab] Clopidogrel [Plavix] 75 mg PO DAILY 02/13/19 11/23/19 Furosemide 40 mg PO DAILY 02/13/19 11/23/19 Atorvastatin Calcium 40 mg PO DAILY 11/23/19 11/23/19 Benazepril HCl 20 mg PO DAILY 11/23/19 11/23/19 Escitalopram Oxalate 5 mg PO DAILY 11/23/19 11/23/19 Potassium Chloride 10 meq PO QPM 11/23/19 11/23/19 Terazosin HCl 10 mg PO DAILY 11/23/19 11/23/19 amLODIPine [Norvasc] 5 mg PO DAILY 11/23/19 11/23/19 - Allergies Allergies/Adverse Reactions: Allergies Allergy/AdvReac Type Severity Reaction Status Date / Time No Known Drug Allergies Allergy Verified 01/13/21 22:25 - Social History Does the pt smoke?: No Smoking Status: Never smoker Does the pt drink ETOH?: No Does the pt have substance abuse?: No - POLST Patient has POLST: No POLST Status: Full Code PD ED PE NORMAL - Vitals Vital signs reviewed: Yes - General General: Alert and oriented X 3, No acute distress, Well developed/nourished - HEENT HEENT: Atraumatic, PERRL, EOMI, Moist mucous membranes, Pharynx benign - Neck Neck: Other (normal upper airway sounds) - Cardiac Cardiac: RRR - Respiratory Respiratory: No respiratory distress, Clear bilaterally - Neuro Neuro: Alert and oriented X 3 Results - Vitals Vitals: Vital Signs - 24 hr 01/13/21 01/13/21 22:00 22:12 Temperature 36.5 C Heart Rate 86 73 Respiratory 18 18 Rate Blood Pressure 173/96 H 173/96 H O2 Saturation 95 98 Oxygen O2 Source Room air PD MEDICAL DECISION MAKING - ED course ED course: Patient was given glucagon IV 1mg then drank pop rocks and soda quickly. He then coughed up a chunk of apple and was able to drink a second soda without difficulty. Now states he feels better though his throat is sore. offered a nalgesia and patient declined. Return precautions given. Plan to f/u with PMD. Departure - Departure Disposition: 01 Home, Self Care Clinical Impression: Foreign body in throat Condition: Good Instructions: ED Foreign Body Swallowed Adult Comments: You were seen in the emergency department after swallowing a chunk of Food that got stuck in your throat. We gave you glucagon through the IV, medication that relaxes muscle in the esophagus. After drinking soda with pop rocks, you were able to cough up a chunk of apple and am glad that you are now feeling better and drinking normally. You will need to follow-up with your primary doctor this week and return to the emergency department immediately if you experience any new or worsening symptoms or have other concerns.
[2021-01-13 23:58] VITALS: BP 144/97
== END 2021-01-14 00:04 | disposition home or self-care (01) ==
LOC: EDUNIT# → SUPCPDRO 22:05 → ED 22:05
DX: R09.89 Other specified symptoms and signs involving the circulatory and respiratory systems (principal); T17.228A Food in pharynx causing other injury, initial encounter; I10 Essential (primary) hypertension; Z95.0 Presence of cardiac pacemaker
CPT/HCPCS: 96374; 99281

== ENCOUNTER 2023-02-12 13:08 | Emergency (ER) | payer MEDICARE ==
[2023-02-12 13:46] VITALS: O2SAT 98
--- NOTE | 2023-02-12 14:10 | ED Physician Documentation ---
History of Present Illness - Stated complaint Stated Complaint: - Chief complaint Chief Complaint: General - History obtained from History obtained from: Patient, Family - History of Present Illness Pain level max: 0 Pain level now: 0 - Additonal information Additional information: Patient is a 77-year-old male brought in by his today. She gives most of the history. She states that over the past 1 week he has had increasing incontinence at home. He does wear depends. He states sometimes he feels the urge to urinate and other times he does not. No fevers. No back pain. No recent surgery. No trauma. No falls. Nothing makes it better or worse. No hematuria. No dysuria. Patient is on Plavix, Lasix, terazosin, atorvastatin, carbidopa levodopa, finasteride, escitalopram, amlodipine. Has a history of BPH and Parkinson's Review of Systems Constitutional: denies: Fever, Chills Throat: denies: Sore throat Cardiac: denies: Chest pain / pressure Respiratory: denies: Dyspnea, Cough GI: denies: Abdominal Pain, Vomiting, Diarrhea, Hematemesis, Bloody / black stool Skin: denies: Rash Musculoskeletal: denies: Neck pain Neurologic: denies: Headache PD PAST MEDICAL HISTORY - Past Medical History Cardiovascular: Hypertension, High cholesterol Respiratory: Sleep apnea, CPAP use Neuro: TIA, Parkinson's Endocrine/Autoimmune: None GI: None : Benign prostate hypertrophy Psych: None Musculoskeletal: None Derm: None - Past Surgical History Past Surgical History: Yes Cardiovascular: Pacemaker Neuro: Other HEENT: Cataracts - Present Medications Home Medications: Ambulatory Orders Medication Instructions Recorded Confirmed Finasteride 5 mg PO DAILY 10/19/15 02/12/23 Carbidopa/Levodopa [Carbidopa-Levo 1 tab PO TID 02/13/19 02/12/23 ER 25-100 Tab] Clopidogrel [Plavix] 75 mg PO DAILY 02/13/19 02/12/23 Furosemide 40 mg PO DAILY 02/13/19 02/12/23 Atorvastatin Calcium 20 mg PO DAILY 11/23/19 02/12/23 Benazepril HCl 20 mg PO DAILY 11/23/19 02/12/23 Escitalopram Oxalate 15 mg PO DAILY 11/23/19 02/12/23 Potassium Chloride 20 meq PO BID 11/23/19 02/12/23 Terazosin HCl 10 mg PO DAILY 11/23/19 02/12/23 amLODIPine [Norvasc] 5 mg PO DAILY 11/23/19 02/12/23 Calcium Carbonate/Mag Carb 1 each PO DAILY 02/12/23 02/12/23 [Magnebind 400 Tablet] Carbidopa/Levodopa ER 50/200 1 each PO HS 02/12/23 02/12/23 [Sinemet Cr 50 mg/200 mg] Cholecalciferol (Vitamin D3) 1,000 unit PO DAILY 02/12/23 02/12/23 [Vitamin D3] Multivitamin 1 each PO DAILY 02/12/23 02/12/23 [place]-3 Fatty Acids [[place]-3] 1 each PO DAILY 02/12/23 02/12/23 - Allergies Allergies/Adverse Reactions: Allergies Allergy/AdvReac Type Severity Reaction Status Date / Time No Known Drug Allergies Allergy Verified 02/12/23 13:41 - Social History Does the pt smoke?: No Smoking Status: Never smoker Does the pt drink ETOH?: No Does the pt have substance abuse?: No - POLST Patient has POLST: No POLST Status: Full Code PD ED PE NORMAL - Vitals Vital signs reviewed: Yes - General General: Alert and oriented X 3, No acute distress - HEENT HEENT: Moist mucous membranes - Neck Neck: Supple, no meningeal sign - Cardiac Cardiac: RRR, Strong equal pulses - Respiratory Respiratory: No respiratory distress, Clear bilaterally - Abdomen Abdomen: Soft, Non tender, Non distended - Back Back: No spinal TTP (No midline tenderness palpation or percussion. No step-off or deformity.) - Derm Derm: Warm and dry - Extremities Extremities: No edema, No calf tenderness / cord - Neuro Neuro: Alert and oriented X 3 - Psych Psych: Normal mood, Normal affect Results - Vitals Vitals: Vital Signs - 24 hr 02/12/23 02/12/23 02/12/23 13:33 14:46 15:17 Temperature 37.1 C Heart Rate 74 50 L 54 L Respiratory 18 18 15 Rate Blood Pressure 148/82 H 149/88 H 152/87 H O2 Saturation 98 98 98 Oxygen O2 Source Room air - Labs Labs: Laboratory Tests 02/12/23 14:05 Urine Color YELLOW Urine Clarity CLEAR Urine pH 7.0 Ur Specific [place] 1.015 Urine Protein NEGATIVE Urine Glucose (UA) NEGATIVE Urine Ketones NEGATIVE Urine Occult Blood NEGATIVE Urine Nitrite NEGATIVE Urine Bilirubin NEGATIVE Urine Urobilinogen 0.2 (NORMAL) Ur Leukocyte Esterase NEGATIVE Ur Microscopic Review NOT INDICATED PD Medical Decision Making - ED course Complexity details: reviewed results, re-evaluated patient, considered differential, d/w patient, d/w family ED course: Patient has a postvoid residual of 93 mL. No evidence of UTI. Likely that the incontinence is a progression of his Parkinson's. Patient and family do not want a Wilson catheter placed. They will instead try behavioral modifications first. They follow-up with his neurologist on Thursday. No back pain. No numbness or tingling. No evidence of cauda equina, epidural abscess. No indication for emergent imaging. Patient and family counseled regarding signs and symptoms for which I believe and urgent re-evaluation would be necessary. Patient with good understanding of and agreement to plan and is comfortable going home at this time This document was made in part using voice recognition software. While efforts are made to proofread this document, sound alike and grammatical errors may occur. Departure - Departure Disposition: Home, Self Care Clinical Impression: Urinary incontinence Qualifiers: Urinary Incontinence type: unspecified incontinence Qualified Code(s): R32 - Unspecified urinary incontinence Condition: Good Instructions: Incontinence Men Follow-Up: BHAVIN VERDE MD [Primary Care Provider] - Comments: There is no evidence of infection or overflow incontinence today. His incontinence is likely related to a progression of his Parkinson's disease. I would recommend speaking with his neurologist on Thursday as scheduled. Please return if he worsens. I would recommend frequent bathroom trips as well to help decrease the incontinence. Forms: PCP List Discharge Date/Time: 02/12/23 15:18
[2023-02-12 14:26] LABS: BILIRUBIN,URINE NEGATIVE (NEGATIVE); GLUCOSE, URINE (UA) NEGATIVE (NEGATIVE); KETONES,URINE (UA) NEGATIVE (NEGATIVE); LEUKOCYTE ESTERASE, URINE NEGATIVE (NEGATIVE); NITRITE,URINE NEGATIVE (NEGATIVE); OCCULT BLOOD,URINE NEGATIVE (NEGATIVE); PROTEIN,URINE NEGATIVE (NEGATIVE); UROBILINOGEN,URINE 0.2 (NORMAL) E.U./dL (NORMAL)
[2023-02-12 14:40] LABS: CLARITY,URINE CLEAR (CLEAR)
[2023-02-12 15:18] VITALS: BP 152/87
== END 2023-02-12 15:18 | disposition home or self-care (01) ==
LOC: ED 13:08
DX: R32 Unspecified urinary incontinence (principal); G20.A1 Parkinson's disease without dyskinesia, without mention of fluctuations
CPT/HCPCS: 51798; 81001; 81003; 99282; 99283